=== PATIENT | female | born 1975 | race Caucasian/White ===

== ENCOUNTER 2016-12-26 12:24 | Emergency (ER) | payer OTHER | END 2016-12-26 14:04 | disposition home or self-care (01) | LOC: ER 12:24 | DX: M79.89 Other specified soft tissue disorders (principal); M79.604 Pain in right leg; J45.909 Unspecified asthma, uncomplicated; Z88.5 Allergy status to narcotic agent; Z88.8 Allergy status to other drugs, medicaments and biological substances; Z79.899 Other long term (current) drug therapy | CPT/HCPCS: 93971; 99283-25 ==